=== PATIENT | female | born 1990 | race Two or more races ===

== ENCOUNTER 2019-02-21 11:45 | Emergency (ER) | payer OTHER ==
[~2019-02-21] VITALS: Ht 167.6 cm; Wt 50.8 kg
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
--- NOTE | 2019-02-21 13:04 | NUR ---
Patient discharged to home in stable condition. Written and verbal after care instructions given. Patient verbalizes understanding of instruction.
[2019-02-21 13:05] VITALS: BP 116/74
== END 2019-02-21 13:12 | disposition home or self-care (01) ==
LOC: ER 11:48
DX: S61.451A Open bite of right hand, initial encounter (principal); E03.9 Hypothyroidism, unspecified; W54.0XXA Bitten by dog, initial encounter; Y93.89 Activity, other specified; Y92.89 Other specified places as the place of occurrence of the external cause; Y99.8 Other external cause status
CPT/HCPCS: 99283; A6402; A6403

== ENCOUNTER 2019-11-15 00:09 | Emergency (ER) | payer OTHER ==
[~2019-11-15] VITALS: Ht 167.6 cm; Wt 54.4 kg
[2019-11-15 00:43] VITALS: BP 122/85
[2019-11-15] MEDS ORDERED: ACETAMINOPHEN W/ CODEINE#3 1 EA TABLET PO ONE (01:30)
[2019-11-15] MEDS ORDERED: DEXAMETHASONE 4 MG TABLET ONE (01:30)
[2019-11-15] MEDS ORDERED: ACETAMINOPHEN W/ CODEINE#3 1 EA TABLET ONE (01:30)
[2019-11-15] MEDS ORDERED: DEXAMETHASONE 1 MG TABLET PO ONE (01:30)
--- NOTE | 2019-11-15 02:41 | NUR ---
Patient discharged to home in stable condition. Rx and Written and verbal after care instructions given. Patient verbalizes understanding of instruction.
== END 2019-11-15 02:42 | disposition home or self-care (01) ==
LOC: ER 00:09
DX: J10.1 Influenza due to other identified influenza virus with other respiratory manifestations (principal); R05 Cough; R07.89 Other chest pain; R11.10 Vomiting, unspecified; E03.9 Hypothyroidism, unspecified
CPT/HCPCS: 71046; 87804 ×2; 99284; J8540